=== PATIENT | female | born 1995 | race Hispanic/Latino ===

== ENCOUNTER 2019-01-26 21:07 | Emergency (ER) | payer OTHER ==
[2019-01-26 22:13] LABS: APPEARANCE,URINE Clear (CLEAR); BILIRUBIN,URINE Negative (NEGATIVE); COLOR,URINE Yellow (YELLOW); GLUCOSE, URINE (UA) Negative (NEGATIVE); KETONES,URINE Negative (NEGATIVE); LEUKOCYTE ESTERASE ,URINE Large (NEGATIVE); NITRATE,URINE Negative (NEGATIVE); OCCULT BLOOD,URINE Negative (NEGATIVE); PROTEIN,URINE Negative (NEGATIVE); UROBILINOGEN,URINE 0.2 mg/dL (0.2-1.0)
[2019-01-26 22:14] LABS: HCG,QUAL RESULT POSITIVE (NEGATIVE)
[2019-01-26] MEDS ORDERED: SODIUM CHLORIDE 0.9% 1000ML 1,000 ML IV ONE (22:28)
[2019-01-26 22:33] LABS: BASOPHILS % (AUTO) 0.7 % (0.0-5.0); HEMATOCRIT 37.7 % (36-48); LYMPHOCYTES % (AUTO) 25.5 % (21.0-51.0); MEAN CORPUSCULAR HEMOGLOBIN 30.9 pg (27.0-33.0); MEAN CORPUSCULAR HGB CONC 34.4 g/dL (32.0-36.0); MEAN CORPUSCULAR VOLUME 89.6 fL (79-99); MONOCYTES % (AUTO) 4.9 % (3.0-13.0); NEUTROPHILS % (AUTO) 66.9 % (40.0-77.0); PLATELET COUNT (AUTO) 290 K/uL (130-400); RED BLOOD CELL COUNT(AUTO) 4.21 MIL/uL (4.00-5.50); RED CELL DISTRIBUTION WIDTH 12.9 % (11.0-15.5); WHITE BLOOD COUNT (AUTO) 10.1 K/uL (4.8-10.8)
[2019-01-26 22:38] LABS: BACTERIA,URINE Few /HPF (None Seen); RBC,URINE 0-1 /HPF (0-1)
[2019-01-26 22:40] LABS: CREATININE 0.5 mg/dL (0.5-1.5); POTASSIUM 3.9 mmol/L (3.5-5.1)
== END 2019-01-26 23:48 | disposition home or self-care (01) ==
LOC: EDH 21:07
DX: O20.0 Threatened abortion (principal); O23.11 Infections of bladder in pregnancy, first trimester; Z3A.08 8 weeks gestation of pregnancy
CPT/HCPCS: 36415; 76801; 80048; 81001; 81025; 84702; 85025; 86900; 86901; 87088; 99285; J7030

== ENCOUNTER 2019-06-29 20:50 | Emergency (ER) | payer MEDICAID, OTHER ==
[2019-06-29] MEDS ORDERED: ACETAMINOPHEN EXTRA STRENGTH 500 MG TABLET ONE (21:18)
[2019-06-29 21:22] LABS: RAPID GROUP A STREP NEGATIVE (NEGATIVE)
[2019-06-29] MEDS ORDERED: ALBUTEROL SULFATE 0.083% 2.5 MG/3 ML INH IH ONE (21:32)
[2019-06-29] MEDS ORDERED: ONDANSETRON ODT 4 MG TAB ONE (21:47)
== END 2019-06-29 21:57 | disposition home or self-care (01) ==
LOC: EDH 20:50
DX: O99.512 Diseases of the respiratory system complicating pregnancy, second trimester (principal); J09.X2 Influenza due to identified novel influenza A virus with other respiratory manifestations; Z98.890 Other specified postprocedural states; Z3A.26 26 weeks gestation of pregnancy
CPT/HCPCS: 87804; 87880; 94640

== ENCOUNTER 2019-11-16 11:22 | Emergency (ER) | payer OTHER, SELFPAY ==
[2019-11-16] MEDS ORDERED: ACETAMINOPHEN EXTRA STRENGTH 500 MG TABLET ONE (12:03)
[2019-11-16 12:51] LABS: RAPID GROUP A STREP NEGATIVE (NEGATIVE)
== END 2019-11-16 14:18 | disposition home or self-care (01) ==
LOC: EDH 11:22
DX: U07.1 COVID-19 (principal); Z98.890 Other specified postprocedural states
CPT/HCPCS: 36415; 87804 ×2; 87880; 99283; U0003

== ENCOUNTER 2023-12-11 05:59 | Emergency (ER) | payer BC, OTHER ==
[~2023-12-11] VITALS: Ht 160 cm; Wt 89.8 kg
[2023-12-11 06:14] VITALS: BP 115/65; PULSE 67; RESP 18; O2SAT 100
[2023-12-11] MEDS ORDERED: CIPR7.5D7 AS (06:18)
[2023-12-11] MEDS: CIPROFLOXACIN HCL/DEXAMETH 7.5 ML DROPS.SUSP OTIC ONE (06:22)
== END 2023-12-11 06:25 | disposition home or self-care (01) ==
LOC: EDH 05:59
DX: T16.2XXA Foreign body in left ear, initial encounter (principal); W44.F4XA Insect entering into or through a natural orifice, initial encounter; Y93.89 Activity, other specified; Y92.89 Other specified places as the place of occurrence of the external cause; Y99.8 Other external cause status
CPT/HCPCS: 69200